=== PATIENT | male | born 1985 | race African-American/Black ===

== ENCOUNTER → 2018-10-27 | Outpatient (CLI) | payer OTHER | LOC: MHCPAIN 09:53 | DX: G89.29 Other chronic pain (principal); M47.814 Spondylosis without myelopathy or radiculopathy, thoracic region | CPT/HCPCS: G0463 ==

== ENCOUNTER → 2018-11-04 | Outpatient (CLI) | payer OTHER | LOC: MHCPAIN 14:08 | DX: M47.814 Spondylosis without myelopathy or radiculopathy, thoracic region (principal); M54.14 Radiculopathy, thoracic region ==

== ENCOUNTER → 2018-11-09 | Outpatient (CLI) | payer OTHER | LOC: MHCPAIN 09:24 | DX: G89.29 Other chronic pain (principal); M47.814 Spondylosis without myelopathy or radiculopathy, thoracic region | CPT/HCPCS: G0463 ==

== ENCOUNTER → 2018-11-23 | Outpatient (CLI) | payer OTHER | LOC: MHCPAIN 13:16 | DX: M79.18 Myalgia, other site (principal) | CPT/HCPCS: J1040 ==

== ENCOUNTER → 2019-02-23 | Outpatient (CLI) | payer OTHER | LOC: MHCPAIN 12:32 | DX: M79.18 Myalgia, other site (principal); M54.6 Pain in thoracic spine | CPT/HCPCS: G0463 ==